=== PATIENT | female | born 1945 | race African-American/Black ===

== ENCOUNTER 2018-07-17 16:28 | Inpatient (IN) | payer OTHER ==
[~2018-07-17] VITALS: Ht 165.1 cm; Wt 56.5 kg
[~2018-07-17 16:28] MED LIST: ASPI-1159 PO; CALC500T62 PO; CLOP75TA16 PO; DIVA-75 PO; FOLI-43 PO; METO-539 PO; METO50TA95 PO; OMEP20CA10 PO; OMEP20TA2 PO; SIMV20TA6 PO
[2018-07-17] MEDS ORDERED: NITROGLYCERIN OINT 1GM/INCH UDPKT TD ONE (21:30)
[2018-07-17 22:18] LABS: BASOPHILS % 0.9 % (0.0-2.0); EOSINOPHILS % 0.8 % (0.0-5.0); HEMOGLOBIN. 12.3 g/dL (12.0-16.0); LYMPHOCYTES % 47.4 % (20.0-50.0); MEAN CORPUSCULAR HEMOGLOBIN 22.7 pg (28.0-32.0); MEAN PLATELET VOLUME 9.6 fl (7.4-10.4); MONOCYTES % 5.5 % (2.0-8.0); NEUTROPHILS % 45.4 % (40.0-76.0); PLATELET 171 x1000/uL (130-400); RED BLOOD CELL COUNT 5.42 mill/uL (4.2-5.4); RED CELL DISTRIBUTION WIDTH 14.7 % (11.6-14.6)
[2018-07-17 22:22] LABS: CHLORIDE 107 mEq/L (98-107)
[2018-07-18 09:00] VITALS: BP 163/62
[2018-07-18 10:00] VITALS: BP 163/62
[2018-07-18] MEDS ORDERED: LORAZEPAM 0.5MG TABLET PO PRN (10:45)
[2018-07-18] MEDS ORDERED: ACETAMINOPHEN 650MG SUPP PR PRN (10:45)
[2018-07-18] MEDS ORDERED: CLONIDINE 0.1MG TABLET PO PRN (10:45)
[2018-07-18] MEDS ORDERED: DIPHENHYDRAMINE 50MG/ML VIAL IV PRN (10:45)
[2018-07-18] MEDS ORDERED: GUAIFENESIN 200MG/10ML SUGAR FREE UDC PO PRN (10:45)
[2018-07-18] MEDS ORDERED: ONDANSETRON HCL 4MG/2ML INJ IV PRN (10:45)
[2018-07-18] MEDS ORDERED: NA PHOS,M-B/NA PHOS,DI-BA ENEMA 118ML PR PRN (10:45)
[2018-07-18] MEDS ORDERED: HYDROCODONE/ACETAMINOPHEN 5/325MG TABLET PO PRN (10:45)
[2018-07-18] MEDS ORDERED: MAGNESIUM/ALUMINUM HYDROXIDE/SIMETHICONE 30ML UDC PO PRN (10:45)
[2018-07-18] MEDS ORDERED: ACETAMINOPHEN 325MG TABLET PO PRN (10:45)
[2018-07-18] MEDS ORDERED: IPRATROPIUM/ALBUTEROL 0.5-3(2.5)MG/3ML NEB INH PRN (10:45)
[2018-07-18] MEDS ORDERED: MEDICATION NOT ON FORMULARY EA (Metoprolol Tartrate 50 MG) PO SCH (10:45)
[2018-07-18] MEDS ORDERED: DOCUSATE SODIUM 100MG CAPSULE PO PRN (10:45)
[2018-07-18 12:00] VITALS: BP 159/65
[2018-07-18] MEDS: CLOPIDOGREL 75MG TABLET PO SCH (13:08)
[2018-07-18] MEDS: METOPROLOL TARTRATE 50MG TABLET PO SCH ×2 (13:09→21:44)
[2018-07-18] MEDS: ASPIRIN 81MG EC TABLET PO SCH (13:09)
[2018-07-18] MEDS: FOLIC ACID 1MG TABLET PO SCH (13:09)
[2018-07-18] MEDS: ENOXAPARIN 40MG/0.4ML SYR SUBCUT SCH (13:10)
[2018-07-18 13:20] LABS: HEMATOCRIT 38.4 % (36.0-48.0); HEMOGLOBIN 11.9 g/dL (12.0-16.0); MEAN CORPUSCULAR HEMOGLOBIN 22.2 pg (28.0-32.0); MEAN CORPUSCULAR VOLUME 71.8 fL (81.0-99.0); PLATELET 174 x1000/uL (130-400); RED BLOOD CELL COUNT 5.34 mill/uL (4.2-5.4); RED CELL DISTRIBUTION WIDTH 14.4 % (11.6-14.6)
[2018-07-18 13:38] LABS: CREATINE KINASE 68 IU/L (26-192); CREATINE KINASE MB FRACTION 1.1 ng/mL (0.5-3.6)
[2018-07-18 14:36] LABS: CHLORIDE 109 mEq/L (98-107)
[2018-07-18 16:00] VITALS: BP 169/66
[2018-07-18] MEDS: NICOTINE 14MG PATCH TD SCH (16:18)
[2018-07-18] MEDS ORDERED: CALCIUM 500 MG PO SCH (17:00)
[2018-07-18] MEDS ORDERED: DIVALPROEX SODIUM 500 MG PO SCH (17:00)
[2018-07-18] MEDS ORDERED: REGADENOSON 0.4 MG/5 ML IV NR (17:00)
[2018-07-18] MEDS: CALCIUM CARBONATE 1250MG TABLET (500MG ELEMENTAL CALCIUM) PO SCH (17:25)
[2018-07-18] MEDS: DIVALPROEX SODIUM 250MG DR TABLET PO SCH (17:25)
[2018-07-18 20:00] VITALS: BP 135/53
[2018-07-18] MEDS ORDERED: ATORVASTATIN CALCIUM 10MG TABLET PO SCH (21:00)
[2018-07-18 22:39] LABS: CREATINE KINASE 68 IU/L (26-192)
[2018-07-18 22:41] LABS: CREATINE KINASE MB FRACTION 1.1 ng/mL (0.5-3.6)
[2018-07-19] VITALS: BP 147/58
[2018-07-19 04:00] VITALS: BP 129/35
[2018-07-19 07:01] LABS: CHLORIDE 107 mEq/L (98-107)
[2018-07-19 07:09] LABS: BASOPHILS % 0.6 % (0.0-2.0); EOSINOPHILS % 1.2 % (0.0-5.0); HEMATOCRIT. 36.4 % (36.0-48.0); HEMOGLOBIN. 11.6 g/dL (12.0-16.0); LYMPHOCYTES % 46.9 % (20.0-50.0); MEAN CORPUSCULAR HEMOGLOBIN 22.9 pg (28.0-32.0); MEAN CORPUSCULAR VOLUME 71.9 fL (81.0-99.0); MEAN PLATELET VOLUME 9.7 fl (7.4-10.4); MONOCYTES % 7.6 % (2.0-8.0); NEUTROPHILS % 43.7 % (40.0-76.0); PLATELET 178 x1000/uL (130-400); RED BLOOD CELL COUNT 5.06 mill/uL (4.2-5.4); RED CELL DISTRIBUTION WIDTH 14.7 % (11.6-14.6)
[2018-07-19 07:19] LABS: LDL CHOLESTEROL 85 mg/dL (5-100)
[2018-07-19 07:20] LABS: HDL CHOLESTEROL 53 mg/dL (40-59); T4 FREE 1.19 ng/dL (0.76-1.46)
[2018-07-19 07:40] VITALS: BP 145/52
[2018-07-19] MEDS ORDERED: MEDICATION NOT ON FORMULARY EA (Simvastatin 20 MG) PO SCH (09:00)
[2018-07-19] MEDS ORDERED: OMEPRAZOLE 20MG CAPSULE EXTENDED RELEASE PO SCH (09:00)
[2018-07-19] MEDS ORDERED: MEDICATION NOT ON FORMULARY EA (Folic Acid 1 MG) PO SCH (09:00)
[2018-07-19] MEDS ORDERED: REGADENOSON 0.4 MG/5 ML IV ONE (09:07)
[2018-07-19] MEDS: NICOTINE 14MG PATCH TD SCH (10:45)
[2018-07-19] MEDS: DIVALPROEX SODIUM 250MG DR TABLET PO SCH (10:45)
[2018-07-19] MEDS: CLOPIDOGREL 75MG TABLET PO SCH (10:46)
[2018-07-19] MEDS: FOLIC ACID 1MG TABLET PO SCH (10:46)
[2018-07-19] MEDS: ASPIRIN 81MG EC TABLET PO SCH (10:46)
[2018-07-19] MEDS: METOPROLOL TARTRATE 50MG TABLET PO SCH (10:46)
[2018-07-19] MEDS: CALCIUM CARBONATE 1250MG TABLET (500MG ELEMENTAL CALCIUM) PO SCH (10:46)
[2018-07-19 12:00] VITALS: BP 134/58
[2018-07-19] MEDS: ENOXAPARIN 40MG/0.4ML SYR SUBCUT SCH (12:01)
[2018-07-19 16:00] VITALS: BP 142/54
[2018-07-19 16:21] VITALS: BP 142/54
== END 2018-07-19 17:00 | disposition home or self-care (01) | DRG 313 ==
LOC: ER 16:28 → 7WST 23:16 → ENRESERV 07-18 07:07
PROVIDERS: ADMIT Internal Medicine; ATTEND Internal Medicine
DX: R07.89 Other chest pain (principal); G62.9 Polyneuropathy, unspecified; I10 Essential (primary) hypertension; E78.5 Hyperlipidemia, unspecified; F17.210 Nicotine dependence, cigarettes, uncomplicated; G89.29 Other chronic pain; M54.9 Dorsalgia, unspecified; I25.119 Atherosclerotic heart disease of native coronary artery with unspecified angina pectoris; G40.909 Epilepsy, unspecified, not intractable, without status epilepticus; I25.2 Old myocardial infarction; Z82.49 Family history of ischemic heart disease and other diseases of the circulatory system; Z95.5 Presence of coronary angioplasty implant and graft; Z88.0 Allergy status to penicillin; Z79.82 Long term (current) use of aspirin; Z79.899 Other long term (current) drug therapy; Z87.828 Personal history of other (healed) physical injury and trauma
CPT/HCPCS: 36415; 71045; 78452; 80048; 80061; 82550; 82553; 84439; 84443; 84484; 85027; 85379; 93005; 93017; 93306; 93880; 93970; 97162; 99285; A9500; J1650; J2785